=== PATIENT | male | born 1960 | race Caucasian/White ===

== ENCOUNTER → 2018-07-04 08:20 | Outpatient (CLI) | payer OTHER, SELFPAY ==
[2018-07-04 12:09] LABS: Absolute Lymphocyte Count 1.84 X10^3/ul (0.83-4.51); Absolute Neutrophil Count 2.4 X10^3/uL (2.0-7.7); Basophil# 0.03 X10^3/uL; Basophil% 0.6 % (0-1); Hematocrit 45.1 % (40-54); Hemoglobin 15.2 g/dl (13.0-16.5); Lymphocyte # 1.84 X10^3/ul (4.0); Lymphocyte % 36.5 % (19-41); Mean Corp Hgb Conc 33.7 g/gl (32-36); Mean Corpuscular Hgb 30.6 pg (27.0-32.0); Mean Corpuscular Volume 90.9 fL (80-94); Mean Platelet Vol. 10.8 fl (6.2-12.0); Monocyte# 0.55 X10^3/uL; Monocyte% 10.9 % (0-10); Neutrophil % 47.6 % (47-70); Platelet Count 243 K/mm3 (150-450); RBC Distribution Width CV 13.8 % (11.6-14.6); RBC Distribution Width SD 45.1 fl (35.1-43.9); Red Blood Count 4.96 M/mm3 (4.6-6.2)
[2018-07-04 12:28] LABS: POSITIVE COUNT NO; POSITIVE DIFFERENTIAL NO; POSITIVE MORPHOLOGY NO
[2018-07-04 12:40] LABS: ALB/GLOB Ratio 1.1 RATIO (0.9-2.4); AST(SGOT) 28 U/L (15-37); Alanine Aminotransfer ALT/SGPT 47 U/L (16-61); Albumin, Serum 4.4 g/dL (3.2-5.0); Alkaline Phosphatase 53 U/L (45-117); Anion Gap 10 (5-15); BUN 23 mg/dL (7-18); BUN/Creat Ratio 20.4 RATIO (10-20); Calcium,Total 9.4 mg/dL (8.5-10.1); Chloride 104 mmol/L (98-107); Cholesterol 253 mg/dL (200); Creatinine, Serum 1.13 mg/dL (0.70-1.30); EST Glomerular Filtration Rate 71 mL/min (>60); Est Glom Filt Rate - Afr Amer 86 mL/min (>60); Globulin 3.9 g/dL (2.2-4.2); Glucose 108 mg/dL (74-106); High Density Lipoprotein 76 mg/dL; PSA,Total - Annual Screen 0.59 ng/mL (0.00-4.00); Potassium 3.9 mmol/L (3.5-5.1); Protein, Total 8.3 g/dL (6.4-8.2); Sodium Level 139 mmol/L (136-145); T4 Free Direct 1.09 ng/dL (0.76-1.46); Thyroid Stim Hormone (TSH) 9.07 uIU/mL (0.358-3.74); Triglycerides 109 mg/dL; Very Low Density Lipoprotein 22 mg/dL (5-40)
[2018-07-05 11:50] LABS: Hemoglobin A1c 5.3 % (4.2-6.3)
[2018-07-06 13:35] LABS: Lead, Blood Adult 16+yrs 14 ug/dL (0-4)
== END ==
PROVIDERS: Family Provider Family Medicine; PCP Family Medicine; Visit Provider Family Medicine
DX: Z00.00 Encounter for general adult medical examination without abnormal findings (principal); Z12.5 Encounter for screening for malignant neoplasm of prostate; E03.9 Hypothyroidism, unspecified; Z77.011 Contact with and (suspected) exposure to lead; R73.01 Impaired fasting glucose
CPT/HCPCS: 36415; 80053; 80061; 83036; 83655; 84153; 84439; 84443; 85025; G0103

== ENCOUNTER → 2019-08-21 09:22 | Outpatient (CLI) | payer OTHER, SELFPAY ==
--- NOTE | 2019-08-21 10:08 | EKG12_ITS ---
Test Reason : PRE-OP Blood Pressure : / mmHG Vent. Rate : 057 BPM Atrial Rate : 057 BPM P-R Int : 174 ms QRS Dur : 102 ms QT Int : 408 ms P-R-T Axes : 060 025 018 degrees QTc Int : 397 ms Sinus bradycardia Otherwise normal ECG Confirmed by ASHLEIGH WOODRUFF, DAMON ([id number]), scientific editor KIAN CRESPO ([id number]) on 08/22/2019 1:06:53 PM Referred By: Jhon Wang Confirmed By:DAMON SOTELO MD
[2019-08-21 12:21] LABS: Absolute Neutrophil Count 3.1 X10^3/uL (2.0-7.7); Basophil# 0.03 X10^3/uL; Basophil% 0.6 % (0-1); Eosinophil# 0.17 X10^3/uL; Eosinophils% 3.3 % (0-5); Hematocrit 48.2 % (40-54); Hemoglobin 15.6 g/dL (13.0-16.5); Lymphocyte % 23.6 % (19-41); Mean Corp Hgb Conc 32.4 g/dL (32-36); Mean Corpuscular Hgb 29.9 pg (27.0-32.0); Mean Corpuscular Volume 92.5 fL (80-94); Monocyte# 0.58 X10^3/uL; Monocyte% 11.4 % (0-10); NRBC Flagged by Analyzer 0 % (0-5); Neutrophil # 3.08 X10^3/uL (2.7-7.7); Neutrophil % 60.7 % (47-70); Platelet Count 253 K/mm3 (150-450); RBC Distribution Width CV 13.2 % (11.6-14.6); RBC Distribution Width SD 44.2 fl (35.1-43.9); Red Blood Count 5.21 M/mm3 (4.6-6.2); White Blood Count 5.1 K/mm3 (4.4-11.0)
[2019-08-21 12:40] LABS: ALB/GLOB Ratio 1.1 RATIO (0.9-2.4); AST(SGOT) 39 U/L (15-37); Alanine Aminotransfer ALT/SGPT 55 U/L (16-61); Albumin, Serum 4.4 g/dL (3.2-5.0); Alkaline Phosphatase 65 U/L (45-117); Anion Gap 4 (5-15); BUN 22 mg/dL (7-18); BUN/Creat Ratio 21.2 RATIO (10-20); Calcium,Total 9.1 mg/dL (8.5-10.1); Chloride 103 mmol/L (98-107); Cholesterol 261 mg/dL (200); Creatinine, Serum 1.04 mg/dL (0.70-1.30); EST Glomerular Filtration Rate 78 mL/min (>60); Est Glom Filt Rate - Afr Amer 95 mL/min (>60); Globulin 4.1 g/dL (2.2-4.2); Glucose 99 mg/dL (74-106); High Density Lipoprotein 58 mg/dL; PSA,Total - Annual Screen 0.63 ng/mL (0.00-4.00); Potassium 4.2 mmol/L (3.5-5.1); Protein, Total 8.5 g/dL (6.4-8.2); Sodium Level 137 mmol/L (136-145); T4 Free Direct 0.82 ng/dL (0.76-1.46); Thyroid Stim Hormone (TSH) 9.82 uIU/mL (0.358-3.74); Triglycerides 213 mg/dL; Very Low Density Lipoprotein 43 mg/dL (5-40)
[2019-08-22 12:03] LABS: Lead, Blood Adult 16+yrs 3
== END ==
PROVIDERS: Family Provider Family Medicine; PCP Family Medicine; Referring Provider Physician Assistant; Visit Provider Physician Assistant
DX: Z00.00 Encounter for general adult medical examination without abnormal findings (principal); E03.9 Hypothyroidism, unspecified; Z12.5 Encounter for screening for malignant neoplasm of prostate
CPT/HCPCS: 36415; 80053; 80061; 83655; 84153; 84439; 84443; 85025; 93005; G0103

== ENCOUNTER → 2020-03-19 09:15 | Outpatient (CLI) | payer SELFPAY | PROVIDERS: PCP Family Medicine; Referring Provider Family Medicine; Visit Provider Family Medicine | DX: Z20.828 Contact with and (suspected) exposure to other viral communicable diseases (principal) | CPT/HCPCS: 87635; G2023; U0003 ==

== ENCOUNTER 2023-03-01 07:16 | Day surgery (SDC) | payer SELFPAY ==
[2023-03-01 07:41] VITALS: BP 124/82; PULSE 60; RESP 18; TEMP 36.1; O2SAT 99; BMI 26.2
[2023-03-01] MEDS: Lactated Ringers 1,000 ML 15 ML IV (07:41)
--- NOTE | 2023-03-01 07:49 | HP.PCM_ITS ---
HPI - General General Date of Service: 03/01/23 Chief Complaint: Screening for intestinal cancer HPI Narrative WALLY QUINTANILLA, is a 62 M who presents for screening colonoscopy today. He presents via open access. July 2022 he did have a bout of acute diverticulitis. He did not see his MD for that. He has had multiple Bouts of diverticulitis over the past years. This occurs when he gets constipated. He has become intolerant to metronidazole and ciprofloxacin. Currently if he has a flare he takes amoxicillin. He denies any current abdominal pain. He denies cardiac or pulmonary disease. FORMERLY [facility], 1928–1983 Medical History (Updated 02/28/23 @ 09:29 by Elsie Curry) Alcohol use Arthritis Chewing tobacco use Diverticulitis Excessive bleeding Fatty liver History of diverticulitis History of stress test Hyperlipidemia Hypothyroid Leukopenia Sarcoid Sleep apnea Wears contact lenses Home Medications Lactobacillus combo no.23 14 billion cell capsule (Bravo Probiotic) 14 cell PO DAILY 12/16/22 [History Last Taken Unknown] aspirin 81 mg tablet,delayed release (Adult Low Dose Aspirin) 81 mg PO DAILY 12/16/22 [History Last Taken Unknown] calcium polycarbophil 625 mg tablet (FiberCon) 1,250 mg PO DAILY 12/16/22 [History Last Taken Unknown] cholecalciferol (vitamin D3) 25 mcg (1,000 unit) capsule 25 mcg PO DAILY 12/16/22 [History Last Taken Unknown] gemfibrozil 600 mg tablet 600 mg PO BID 12/16/22 [History Last Taken Unknown] krill 1,000 mg-omega-3 230 mg-dha 60 hk-gsd-nroqkcqli-astaxan capsule (MegaRed [place]-3 Krill Oil) 1 cap PO DAILY 12/16/22 [History Last Taken Unknown] levothyroxine 200 mcg tablet (Synthroid) 200 mcg PO DAILY 12/16/22 [History Last Taken 03/01/23] sildenafil 100 mg tablet 100 mg PO DAILY PRN Erectile Dysfunction 12/16/22 [History Last Taken Unknown] turmeric root extract 500 mg tablet 1,500 mg PO DAILY 12/16/22 [History Last Taken Unknown] Allergy/AdvReac Type Severity Reaction Status Date / Time ciprofloxacin [From Cipro] Allergy Hives Verified 03/01/23 07:40 metronidazole [From Flagyl] Allergy Hives Verified 03/01/23 07:40 Family History (Updated 12/16/22 @ 13:34 by Paulina Koehler) Father Liver cancer Surgical History (Updated 02/28/23 @ 09:16 by Elsie Curry) History of colonoscopy History of lymph node excision History of tonsillectomy and adenoidectomy Hx of lumbar discectomy Social History (Updated 12/16/22 @ 13:36 by Paulina Koehler) household members: spouse current occupational status: retired Smoking Status: Never smoker Smokeless tobacco user: chewing tobacco alcohol intake: current substance use type: does not use caffeine: Yes ROS Constitutional Constitutional: Reports systems reviewed and no addt'l complaints, except as documented Cardiovascular Cardiovascular: Denies chest pain Respiratory/Chest Respiratory/Chest: Denies shortness of breath at rest Gastrointestinal Gastrointestinal: Denies abdominal pain, change in bowel habits, hematochezia or melena Vital Signs Vital Signs Vital Signs: 03/01/23 07:41 03/01/23 07:41 Temperature 97 F L Temperature Source Temporal Pulse Rate 60 Respiratory Rate 18 Respiratory Pattern Normal Blood Pressure 124/82 H Blood Pressure Mean 96 Blood Pressure Source Monitor Blood Pressure Position Semi-Fowlers Blood Pressure Location Right Arm Pulse Ox 99 Oxygen Delivery Method Room Air Weight Weight: 199 lb Body Mass Index (BMI) 26.2 Physical Exam Const alert, oriented x3 and no apparent distress General Appearance: cooperative and comfortable Eyes General Eye: normal appearance of both eyes Neck General: normal visual inspection Chest inspection of chest normal Resp Effort and Inspection: able to speak in complete sentences and symmetric chest movement Auscultation: clear to auscultation bilaterally Cardio regular rate and regular rhythm GI soft to palpation, non-tender and non-distended Extremity no calf tenderness Neuro oriented x3 Psych thought process normal Assessment & Plan Assessment/Plan (1) Encounter for screening for malignant neoplasm of colon: PLAN: I recommended the colon patient a colonoscopy with possible biopsy or polypectomy as indicated. Previous examination was [address] Fry. The patient had an opportunity to ask and have questions answered. As noted he p resents via open access. We will proceed as noted. David Chopra M.D., F.A.C.S.
[2023-03-01 08:41] VITALS: BP 116/67; BP 124/82; PULSE 68; RESP 16; TEMP 36.7; O2SAT 97
--- NOTE | 2023-03-01 08:42 | OP.COLON_ITS ---
Patient Name: Mitesh Vega Procedure Date: 03/01/2023 8:17 AM Date of : 1960 Age: 62 Procedure: Colonoscopy Indications: Screening for colorectal malignant neoplasm Providers: David Chopra MD Medicines: See the Anesthesia note for documentation of the administered medications Patient Profile: Last Colonoscopy: 2012. Complications: No immediate complications. Procedure: Pre-Anesthesia Assessment: - Prior to the procedure, a History and Physical was performed, and patient medications and allergies were reviewed. The patient's tolerance of previous anesthesia was also reviewed. The risks and benefits of the procedure and the sedation options and risks were discussed with the patient. All questions were answered, and informed consent was obtained. Prior Anticoagulants: The patient has taken no previous anticoagulant or antiplatelet agents. ASA Grade Assessment: II - A patient with mild systemic disease. After reviewing the risks and benefits, the patient was deemed in satisfactory condition to undergo the procedure. After I obtained informed consent, the scope was passed under direct vision. Throughout the procedure, the patient's blood pressure, pulse, and oxygen saturations were monitored continuously. The was introduced through the anus and advanced to the cecum, identified by appendiceal orifice and ileocecal valve. The colonoscopy was performed without difficulty. The patient tolerated the procedure well. The quality of the bowel preparation was good. The ileocecal valve and the appendiceal orifice were photographed. Scope In: 8:24:38 AM Scope Withdrawal Time 0 hours 8 minutes 6 seconds Scope Out: 8:38:26 AM Total Procedure Duration Time 0 hours 13 minutes 48 seconds Findings: Hemorrhoids were found on perianal exam. Multiple diverticula were found in the entire colon. The exam was otherwise without abnormality. Impression: - Hemorrhoids found on perianal exam. - Diverticulosis in the entire examined colon. - The examination was otherwise normal. - No specimens collected. Recommendation: - Discharge patient to home. - Resume previous diet. - Continue present medications. - Repeat colonoscopy in 10 years for screening purposes. Procedure Code(s): --- Professional --- 04830, Colonoscopy, flexible; diagnostic, including collection of specimen(s) by brushing or washing, when performed (separate procedure) CPT copyright 2017 [employer]. All rights reserved. The codes documented in this report are preliminary and upon charter bus driver review may be revised to meet current compliance requirements. David Chopra MD 03/01/2023 8:42:28 AM This report has been signed electronically. Number of Addenda: 0 Note Initiated On: 03/01/2023 8:17 AM
--- NOTE | 2023-03-01 08:43 | OP.CCLET_ITS ---
03/01/2023 Mitesh Heath [address] [place] [address] Re : Colonoscopy procedure for Mitesh Vega Dear Dr. Heath This procedure was performed on Wednesday, March 01, 2023. My impressions and recommendations are as follows: Impressions : - Hemorrhoids found on perianal exam. - Diverticulosis in the entire examined colon. - The examination was otherwise normal. - No specimens collected. Recommendations : - Discharge patient to home. - Resume previous diet. - Continue present medications. - Repeat colonoscopy in 10 years for screening purposes. My findings are described in the full procedure note, which is enclosed. If I can be of further assistance, please feel free to contact me at Doctor phone number(s): Work: . Sincerely, David Chopra MD 03/01/2023 8:42:28 AM This report has been signed electronically.
[2023-03-01 08:46] VITALS: BP 108/67; BP 124/82; PULSE 61; RESP 16; O2SAT 95
[2023-03-01 08:50] VITALS: BP 110/77; BP 124/82; PULSE 63; RESP 16; O2SAT 94
[2023-03-01 08:57] VITALS: BP 120/83; BP 124/82; PULSE 58; RESP 16; TEMP 36.8; O2SAT 93
[2023-03-01 09:10] VITALS: BP 124/82
== END 2023-03-01 09:12 | disposition home or self-care (01) ==
LOC: EN 07:22 → AC 07:22
PROVIDERS: PCP Family Medicine; Referring Provider Family Medicine; Visit Provider Surgery
PROC: 0DJD8ZZ Inspection of Lower Intestinal Tract, Via Natural or Artificial Opening Endoscopic (ICD-10-PCS; CPT 45378; principal; 2023-03-01 08:10)
DX: Z12.11 Encounter for screening for malignant neoplasm of colon (principal); K57.30 Diverticulosis of large intestine without perforation or abscess without bleeding; Z79.82 Long term (current) use of aspirin; K64.9 Unspecified hemorrhoids; E78.5 Hyperlipidemia, unspecified; Z80.0 Family history of malignant neoplasm of digestive organs; E03.9 Hypothyroidism, unspecified
CPT/HCPCS: 45378; J7120; J2405